=== PATIENT | female | born 1990 | race Caucasian/White ===

== ENCOUNTER → 2019-03-19 10:16 | Outpatient (CLI) | payer SELFPAY ==
[2019-03-19 11:00] LABS: Appearance Urine UA CLOUDY; Bilirubin Urine UA NEGATIVE (NEGATIVE); Color Urine UA YELLOW; Glucose Urine UA NEGATIVE (Negative); Ketones Urine UA NEGATIVE (NEGATIVE); Leukocyte Esterase Urine UA 2+ (NEGATIVE); Nitrite Urine UA NEGATIVE (Negative); Occult Blood Urine UA NEGATIVE (Negative); Protein Urine UA NEGATIVE (Negative); Specific Gravity Urine UA 1.025 (1.000-1.035); Urobilinogen Urine UA 0.2 E.U./dL (0.2); pH Urine UA 6.5 (4.5-8.0)
[2019-03-19 11:16] LABS: Add Manual Diff / Slide Review NO; Basophils Absolute Auto 0 /uL (0-100); Basophils Percent Auto 0.2 % (0-2); Eosinophils Absolute Auto 0 /uL (0-450); Eosinophils Percent Auto 0.4 % (2-4); Hematocrit 41.5 % (36-46); Hemoglobin 14.7 g/dL (12.0-16.0); Hemoglobin A1C% w Est Avg Glu 5.2 % (4.0-6.0); Lymphocytes Absolute Auto 1800 /uL (1100-4500); Lymphocytes Percent Auto 20.3 % (25-40); Mean Corpuscular HGB Conc 35.4 % (30-36); Mean Corpuscular Hemoglobin 30.6 PG (26-34); Mean Corpuscular Volume 86.5 fL (80-100); Monocytes Absolute Auto 600 /uL (0-900); Monocytes Percent Auto 6.7 % (3-14); Neutrophils Absolute Auto 6200 /uL (1500-7000); Neutrophils Percent Auto 72.4 % (50-75); Platelet Count 196 X10^3/uL (150-400); Red Blood Cell Count 4.79 X10^6/uL (4.0-5.2); White Blood Cell Count 8.6 X10^3/uL (4.5-11.0)
[2019-03-19 11:39] LABS: Bacteria Urine Many (>30); RBC Urine 1-5/HPF (0-5/HPF); Squamous Epithelial Cell Urine 10-30 /HPF (0-5/HPF); WBC Urine 5-10/HPF (0-5/HPF)
[2019-03-19 11:40] LABS: Amorphous Sediment Urine 1+; Culture Indicated Urine Cult Not Indicated
[2019-03-19 12:16] LABS: Glucose 105 mg/dL (70-100)
[2019-03-19 18:42] LABS: Hepatitis B Surface Antigen NEGATIVE s/c (NEGATIVE)
[2019-03-19 18:59] LABS: HIV 1 & 2 Ab/Ag 4th Gen Combo NEGATIVE (NEGATIVE); Hep C Virus Ab w/Reflex Quant NEGATIVE s/c (NEGATIVE)
[2019-03-21 13:39] LABS: RPR Screen Nonreactive (Nonreactive)
== END ==
DX: Z34.81 Encounter for supervision of other normal pregnancy, first trimester (principal)
CPT/HCPCS: 36415; 80055; 81003; 81015; 82947; 83036; 86787; 86803; 86850; 86900; 86901; 87086; 87389

== ENCOUNTER → 2019-04-17 08:31 | Outpatient (CLI) | payer SELFPAY ==
[2019-04-21 09:09] LABS: Sequential Screen 1st Trimeste FINAL RESULT PENDING
== END ==
DX: Z36.0 Encounter for antenatal screening for chromosomal anomalies (principal); Z3A.13 13 weeks gestation of pregnancy
CPT/HCPCS: 36415; 84163; 84702

== ENCOUNTER → 2019-05-15 09:42 | Outpatient (CLI) | payer SELFPAY ==
[2019-05-19 09:38] LABS: Sequential Screen 2nd Trimeste SCREEN NEGATIVE
== END ==
LOC: LAB 09:50
DX: Z13.79 Encounter for other screening for genetic and chromosomal anomalies (principal); Z34.82 Encounter for supervision of other normal pregnancy, second trimester; Z3A.17 17 weeks gestation of pregnancy
CPT/HCPCS: 36415; 82105; 82677; 84163; 84702; 86336

== ENCOUNTER → 2019-09-03 10:43 | Outpatient (CLI) | payer OTHER, SELFPAY ==
[2019-09-03 13:31] LABS: Hematocrit 38.3 % (36-46); Hemoglobin 13.7 g/dL (12.0-16.0)
[2019-09-03 13:57] LABS: GTT (PREG) 1 Hour PP 50gm Dose 170 mg/dL (76-139)
== END ==
PROVIDERS: Obstetrics & Gynecology
DX: Z34.82 Encounter for supervision of other normal pregnancy, second trimester (principal)
CPT/HCPCS: 36415; 82950; 85014; 85018

== ENCOUNTER → 2019-09-17 08:15 | Outpatient (CLI) | payer OTHER, SELFPAY ==
[2019-09-18 14:44] LABS: Strep Grp B PCR NEG for Grp B Strep
== END ==
LOC: LAB 08:16
PROVIDERS: PCP Family Medicine; Visit Provider Specialist
DX: Z34.83 Encounter for supervision of other normal pregnancy, third trimester (principal); Z3A.35 35 weeks gestation of pregnancy
CPT/HCPCS: 87653

== ENCOUNTER 2019-10-12 13:50 | Inpatient (IN) | payer OTHER, SELFPAY ==
--- NOTE | 2019-10-12 14:17 | PM.OBHP.1 ---
OB HPI Date/Time Date of admission: 10/12/19 Date Patient Seen: 10/12/19 Time Patient Seen: 14:18 History of Present Condition Chief complaint: OBS : 3 Para: 1 Estimated Date of Delivery: 10/20/19 Estimated Gestational Age (weeks): 39 Narrative: Tereza Pang is a 29 year old female admitted in early labor History of Present care: good care, initiated at week # (9), number of visits (12) and pounds weight gain (29) Dating criteria: LMP confirmed by 1st trimester US Ultrasounds: normal mid trimester US Obstetrical complications: none Medical complications: none Preadmission Labs Blood type: B (+) positive -: Antibody screen: negative, GBS status: negative, HBsAG: negative, HIV: negative and RPR/VDLR: negative -: Chlamydia screen: not detected and Gonorrhea screen: not detected -: Rubella: immune and Varicella: immune HCAB: negative PAP: Normal Quad screen: Normal 1 hr GTT: 170 Narrative: 3 hour glucose tolerance test not performed. Patient has been monitoring blood sugars and they are just a few points above ideal. Evaluation Evaluation Baseline heart rate: 130 Variability: Moderate (11-25) monitor accelerations: Present monitor decelerations: Absent Contraction Frequency (minutes): 3 Uterine Contraction Intensity: Mild Category of Tracing: I Cervical dilation (cm): 4 Cervical effacement (%): 80 station: 0 PFSH Medical History (Updated 10/10/19 @ 11:14 by Jude Daniels MD) Chlamydia (Chronic ~2012) Human papilloma virus (Chronic ~2016) Kidney stones (Inactive ~2008) Multigravida in third trimester (Acute) Surgical History (Updated 04/15/19 @ 21:40 by Day Aldridge) [place] teeth removed (Resolved) Family History (Updated 04/15/19 @ 21:42 by Day Aldridge) Father History of heart attack Mother Cervical cancer Diabetes mellitus Grandfather Stroke Meds Home Medications and Allergies Home Medications Medication Instructions Recorded Confirmed Type prenat.vits,blair,ntd-crzt-koert 1 tab PO DAILY 03/19/19 08/28/19 History blood-glucose meter #1 each 09/05/19 Rx lancets-blood glucose strips 30 #200 each 09/05/19 Rx gauge and blood glucose strips combo pack Allergies Allergy/AdvReac Type Severity Reaction Status Date / Time amoxicillin [From Augmentin] AdvReac Delayed Verified 08/28/19 09:17 Hives/Rash clavulanic acid AdvReac Delayed Verified 08/28/19 09:17 [From Augmentin] Hives/Rash Review of Systems Review of Systems Narrative: Patient denies any headaches, scotomata, epigastric pain. Good movement. No rupture membranes. No fevers. ROS: Yes All systems reviewed with the patient and are negative except as otherwise documented Exam Vital Signs (past 8 hours): Blood pressure initially 152/96 repeat blood pressure 145/102 Narrative Exam Narrative: HEENT exam within normal limits. Lungs are clear to auscultation and percussion. Heart is regular rate and rhythm no S3-S4 or murmurs. Abdomen is soft, nontender. Fetus is vertex. Extremities without edema and nontender. Normal DTRs. Assessment and Plan Assessment and Plan Assessment and Plan narrative: 39 week gestation with diet-controlled gestational diabetes, hypertension in 3rd trimester, in early labor. Will check PIH labs and IV labetalol for hypertension. Monitor glucose. Anticipate vaginal delivery.
[2019-10-12 16:10] LABS: Basophils Absolute Auto 100 /uL (0-100); Basophils Percent Auto 0.5 % (0-2); Eosinophils Absolute Auto 100 /uL (0-450); Eosinophils Percent Auto 0.5 % (2-4); Hematocrit 40.6 % (36-46); Hemoglobin 14.2 g/dL (12.0-16.0); Lymphocytes Absolute Auto 1800 /uL (1100-4500); Lymphocytes Percent Auto 17.5 % (25-40); Mean Corpuscular Hemoglobin 31.4 PG (26-34); Mean Corpuscular Volume 89.7 fL (80-100); Monocytes Absolute Auto 600 /uL (0-900); Monocytes Percent Auto 6.3 % (3-14); Neutrophils Absolute Auto 7800 /uL (1500-7000); Neutrophils Percent Auto 75.2 % (50-75); Platelet Count 177 X10^3/uL (150-400); Red Blood Cell Count 4.53 X10^6/uL (4.0-5.2); Red Cell Distribution Width 13.2 % (11.6-14.8); White Blood Cell Count 10.3 X10^3/uL (4.5-11.0)
[2019-10-12 16:11] LABS: Add Manual Diff / Slide Review SLIDE REVIEW
[2019-10-12 16:27] LABS: Alanine Aminotransferase 17 IU/L (<35); Albumin 3.3 g/dL (3.5-5.0); Albumin Globulin Ratio 1.1 (1.0-2.8); Alkaline Phosphatase 193 U/L (38-126); Aspartate Aminotransferase 24 IU/L (14-36); Bilirubin Total 0.5 mg/dL (0.2-1.3); Blood Urea Nitrogen 10 mg/dL (7-17); Calcium 9.1 mg/dL (8.4-10.2); Carbon Dioxide 19 mmol/L (22-32); Chloride 107 mmol/L (98-107); Estimated Glomerular Filt Rate > 60.0 mL/min (>60); Globulin 2.9 g/dL (1.7-4.1); Glucose 100 mg/dL (70-100); HEMOLYSIS < 15 (0-50); Potassium 4.1 mmol/L (3.4-5.1); Sodium 135 mmol/L (137-145); Total Protein 6.2 g/dL (6.3-8.2)
[2019-10-12 16:52] VITALS: BP 135/88
[2019-10-12 17:00] LABS: RBC Morphology Normal Morphology
--- NOTE | 2019-10-12 22:41 | P.PCNOB_ITS ---
Labor & Delivery Delivery date: 10/12/19 Intrapartal events: None Delivery augmentation: rupture of membranes Delivery monitor: external FHT and external uterine Route of delivery: L&D Laceration Description: None Estimated blood loss (mL): 350 Anesthesia type: None Narrative: Patient arrived on Labor and delivery in early labor with increased blood pressures. PIH labs were normal. She was AROM for clear fluid. heart tones category 1 to category 2 throughout labor. She had a spontaneous vaginal delivery over an intact perineum. The viable female infant was placed on maternal abdomen. After the cord stopped pulsating the cord was clamped, cut, and cord bloods obtained. The placenta delivered spontaneously, intact, with 3 vessels. There were no cervical, vaginal, or perineal tears. Both mother doing well. Baby 1: Infant gender: Female Presentation: vertex position: Right Occiput Anterior Placenta delivery description: Spontaneous cord vessel description: 3 Vessels score (1 min): 8 score (5 min): 9 Plan for aftercare: Routine care
[2019-10-12] MEDS: OXYTOCIN 10 UNIT/ML VIAL 20 UNIT (22:45)
[2019-10-12] MEDS: IBUPROFEN 600 MG TABLET PO (23:30)
--- NOTE | 2019-10-13 | PATH_ITS ---
[facility] Accession Number: [id number] . 01 Material submitted: . placenta - RETAINED PLACENTA . 01 Clinical history: . OBS . 02 Diagnosis: Retained Placenta: Products of conception identified. V 10/17/2019 0806 Local . 02 Electronically signed: . Michaela Paniagua MD, Pathologist NPI- [id number] . 01 Gross description: . Received in formalin, labeled retained placenta, is a piece of red-brown, spongy hemorrhagic tissue (82 g, 8.8 x 5.7 x 3.4 cm). No nodules, masses, or lesions are identified. Paraoptometric tissue submitted in cassettes A1-A4. ([id number]) /[facility] 10/15/2019 1210 Local . 02 Pathologist provided ICD-10: O02.1 . 02 CPT . 881669 Performed at: 01 [facility] [address] [facility], [place], [place] [id number] MD Jace Hernández MD Phone: [phone] Performed at: [address] [facility] [address] [place], [place] [id number] MD Jaqueline Heck MD Phone: [phone]
[2019-10-13] MEDS: OXYTOCIN PREMIX 30 UNIT/500 ML PLAST..BAG IV (00:56)
[2019-10-13] MEDS: CARBOPROST 250 MCG/ML AMPUL IM (03:35)
[2019-10-13] MEDS: ACETAMINOPHEN 325 MG TABLET 650 MG PO (03:59)
--- NOTE | 2019-10-13 05:01 | PM.PREOP ---
Pre-operative Note Interval Note History & Physical reviewed/Exam performed by Physician: Yes Changes to H&P: Yes H&P completed within 30 days and has changed as indicated here:: hemorrhage
--- NOTE | 2019-10-13 05:02 | PM.OBPN.1 ---
Subjective - OB Subjective Patient comments: other (Continued vaginal bleeding) baby status: doing well feeding status: exclusively breast feeding Date Patient Seen: 10/13/19 Time Patient Seen: 05:02 Exam Vital Signs (past 8 hours): Blood pressure 115/72, pulse 105, temperature 98.5? Narrative Exam Narrative: Abdomen is soft, nontender. Uterus is firm at U +1 and tender. Moderate lochia. Extremities without edema and nontender. Patient has had close to 1000cc blood loss since delivery despite massage, additional IV Pitocin, Hemabate. Methergine was not given due to patient's blood pressure issues prior to delivery. hemorrhage of unclear etiology. Will do an exam under anesthesia and endometrial curettage. Consent form was reviewed with the patient. Risk of infection, perforation with damage to internal structures such as bowel, bladder, ureters, scar tissue, continued bleeding discussed with the patient. Consent form was signed and questions answered. Objective Labs Result Diagrams: 10/12/19 15:50 10/12/19 15:50 Labs: Laboratory Results - last 24 hr 10/12/19 10/12/19 10/12/19 15:50 15:50 15:50 WBC 10.3 RBC 4.53 Hgb 14.2 Hct 40.6 MCV 89.7 MCH 31.4 MCHC 35.0 RDW 13.2 Plt Count 177 Neut % (Auto) 75.2 H Lymph % (Auto) 17.5 L Maury % (Auto) 6.3 Eos % (Auto) 0.5 L Baso % (Auto) 0.5 Neut # (Auto) 7800 H Lymph # (Auto) 1800 Maury # (Auto) 600 Eos # (Auto) 100 Baso # (Auto) 100 RBC Morphology Normal morphology Sodium 135 L Potassium 4.1 Chloride 107 Carbon Dioxide 19 L BUN 10 Creatinine 0.40 L Estimated GFR > 60.0 BUN/Creatinine Ratio 25.0 H Glucose 100 Calcium 9.1 Total Bilirubin 0.5 AST 24 ALT 17 Alkaline Phosphatase 193 H Total Protein 6.2 L Albumin 3.3 L Globulin 2.9 Albumin/Globulin Ratio 1.1 Blood Type B Positive Antibody Screen Negative Assessment & Plan Assessment and Plan (1) Vaginal delivery: Status: Acute Current Visit: Yes (2) hemorrhage: Status: Acute Current Visit: Yes Plan day: 1 plan OB: other (Patient with hemorrhage of unclear etiology. ) Time Spent With Patient Time: Total time spent is greater than 50% in coordination of care (as documented) at patient's floor/unit and/or counseling patient: Time with patient: less than 15 minutes
[2019-10-13] MEDS: LACTATED RINGERS 1,000 ML 42 ML IV (05:45)
[2019-10-13] MEDS: CLINDAMYCIN 900 MG/50 ML PIGGYBACK 50 MG IV (05:50)
--- NOTE | 2019-10-13 05:59 | SUR.OPER ---
Lithotomy on padded OR bed, head on pillow, arms secured on padded arm boards at <90 degrees abduction. Legs secured in padded yellow fins stirrups.
[2019-10-13 06:07] LABS: Add Manual Diff / Slide Review NO; Basophils Absolute Auto 0 /uL (0-100); Basophils Percent Auto 0.1 % (0-2); Eosinophils Absolute Auto 0 /uL (0-450); Hematocrit 25.1 % (36-46); Hemoglobin 8.8 g/dL (12.0-16.0); Lymphocytes Absolute Auto 900 /uL (1100-4500); Lymphocytes Percent Auto 6.4 % (25-40); Mean Corpuscular HGB Conc 35.1 % (30-36); Mean Corpuscular Hemoglobin 31.4 PG (26-34); Mean Corpuscular Volume 89.4 fL (80-100); Monocytes Absolute Auto 700 /uL (0-900); Monocytes Percent Auto 4.9 % (3-14); Neutrophils Absolute Auto 13100 /uL (1500-7000); Neutrophils Percent Auto 88.6 % (50-75); Platelet Count 160 X10^3/uL (150-400); Red Blood Cell Count 2.81 X10^6/uL (4.0-5.2); Red Cell Distribution Width 13.2 % (11.6-14.8); White Blood Cell Count 14.7 X10^3/uL (4.5-11.0)
[2019-10-13 06:14] VITALS: BP 130/76; PULSE 120; RESP 11; TEMP 36.4; O2SAT 99
[2019-10-13 06:17] VITALS: BP 125/87; PULSE 105; RESP 12; O2SAT 99
--- NOTE | 2019-10-13 06:21 | PM.OP.1 ---
Operative Date/Time/Diagnoses Date of procedure: 10/13/19 Time of procedure: 06:21 Pre-op diagnosis: hemorrhage Post-op diagnosis: same Procedure & Clinicians Procedure: Exam under anesthesia with uterine curettage Same procedure as scheduled: Yes Indications: hemorrhage Surgeon: Janina Villatoro Click Yes if Unassisted: Yes Anesthesia Type: General Operative Notes Findings: Retained placental fragment Closure Type: not applicable Specimen(s): other (Retained placenta fragment) Estimated Blood Loss (mL): 50 Blood products transfused: none Procedure in detail: Patient was brought to the operating room where she underwent general anesthesia. She was prepped and draped in the usual sterile fashion. Her bladder was drained with an in-and out catheter. A check system was reviewed with the staff in the room prior to beginning the case. 900 mg of clindamycin in prior to beginning of the case. The vagina was cleared of blood clots. A ring forcep was placed on the anterior lip of the cervix. There were no cervical vaginal or perineal tears. Curettage was performed. A fairly large segment of placenta was removed. 800 micro g of Cytotec were placed in the rectum. The uterus contracted well and bleeding was minimal. She went to the recovery room in good condition. Complications: none Post-operative Condition: stable Disposition: other ( Center) Plan for aftercare: Monitor for continued bleeding. Routine care otherwise.
[2019-10-13 06:22] VITALS: BP 125/83; PULSE 104; RESP 14; O2SAT 100
--- NOTE | 2019-10-13 06:36 | SUR.PHASEI ---
Report to [facility]. Pt transported via bed to OB, VS stable, fundus noted to be 2 below umbilicus, no bleeding noted during recovery phase. Pt in stable condition upon transfer and handoff.
[2019-10-13] MEDS: LACTATED RINGERS 1,000 ML 100 ML IV (07:03)
[2019-10-13] MEDS: DOCUSATE 100 MG CAPSULE PO (08:06)
[2019-10-13] MEDS: IBUPROFEN 600 MG TABLET PO (18:00)
[2019-10-14] MEDS: IBUPROFEN 600 MG TABLET PO (05:23)
[2019-10-14] MEDS: DOCUSATE 100 MG CAPSULE PO (09:03)
--- NOTE | 2019-10-14 09:29 | PM.OBDS.1 ---
Discharge Providers Provider Date of admission: 10/12/19 13:50 Discharge Date: 10/14/19 Primary care physician: Eliceo Marcus DO Consults: 10/13/19 22:39 Consult to Home School Teacher Routine Comment: Discharge provider: Janina Villatoro MD Summary Hospital Course Date Patient Seen: 10/14/19 Time Patient Seen: 08:10 Procedures: Spontaneous vaginal delivery, uterine curettage for retained placenta fragment Hospital Course: Patient arrived on Labor and delivery in active labor. She had elevated blood pressures initially then improved. Blood sugars were in the normal range. She had a spontaneous vaginal delivery. She had delayed hemorrhage from retained placenta fragments that required uterine curettage to remove. After the curettage the patient did well. She was ambulatory and urinating well. Pain was minimal. No fevers. Patient is without difficulty. Peripartum Data Delivery Method: Natural Vaginal Laceration description: None Procedures: Spontaneous vaginal delivery. Uterine curettage. complications: retained placenta (Fragment) [place] 1: Gender: Female Disposition of : home Discharge Diagnosis (1) Vaginal delivery: Status: Acute (2) hemorrhage: Status: Acute (3) Acute blood loss anemia: Status: Acute (4) Gestational diabetes: Status: Acute (5) Retained placenta parts or membranes: Status: Acute (6) Hypertension affecting in third trimester: Status: Acute Status at Discharge Cognitive/behavioral status at discharge: oriented Functional status at discharge: independent ambulation Overall status at discharge: patient is progressing back to baseline Time Spent with Patient Time attestation: Total time spent providing and/or coordinating discharge services: Time spent: Less than 30 minutes Objective Labs Result Diagrams: 10/13/19 05:50 10/12/19 15:50 Exam Vital Signs (past 8 hours): Blood pressure 134/81, pulse 104, temperature 98.2? Oxygen Delivery Method Room Air Narrative Exam Narrative: Abdomen is soft, nontender. Uterus is firm, U -1, nontender. Mild lochia. Extremities without edema and nontender. Patient's blood type is B positive, she is rubella immune, she received Tdap in the 3rd trimester. Discharge Plan Discharge Plan Patient Disposition: Home Discharge comment: Patient is to take iron at a different time than her vitamins. She is to use a stool softener wall taking the iron to prevent constipation. She does not need to continue glucose monitoring Discharge orders & Medications Prescriptions: Continued prenat.vits,blair,sgl-iojp-pevsn tablet 1 tab PO DAILY RF: 0 Discontinued (DME) blood-glucose meter [Blood Glucose Monitoring] Kit See Rx Instructions .ROUTE .MEDSUPPLY RF: 0 (DME) Fora [id number] strp-lnct 30 gauge combo pack See Rx Instructions .ROUTE .MEDSUPPLY RF: 0 Follow up/Referrals: Janina Villatoro MD [Physician] - 1 Month ( exam) Eliceo Marcus DO [Primary Care Provider] - Diet/Activity/Treatments Diet: Regular Activity: Nothing in vagina for 4 weeks Skin/Wound/Dressing Care Report to your healthcare provider any signs of infection, such as:: chills, fever and increased pain Discharge Data Primary Care Provider: Eliceo Marcus
[2019-10-14 11:43] VITALS: BP 125/83; PULSE 104; RESP 14; TEMP 36.4
== END 2019-10-14 11:40 | disposition home or self-care (01) | DRG 806 ==
PROVIDERS: Admitting Provider Specialist; PCP Family Medicine; Referring Provider Specialist; Visit Provider Specialist
PROC: 10D17Z9 Manual Extraction of Products of Conception, Retained, Via Natural or Artificial Opening (ICD-10-PCS; CPT 58120; principal; 2019-10-13 05:30)
DX: O24.420 Gestational diabetes mellitus in childbirth, diet controlled (principal); O72.2 Delayed and secondary postpartum hemorrhage; Z37.0 Single live birth; D62 Acute posthemorrhagic anemia; Z3A.39 39 weeks gestation of pregnancy
CPT/HCPCS: 59050; 59160; 59410; 80053; 85025; 86850; 86900; 86901; G0379; J0330; J1885; J2405; J2590; J2704; J3010

== ENCOUNTER → 2020-02-16 17:28 | Outpatient (CLI) | payer OTHER, SELFPAY ==
--- NOTE | 2020-02-16 17:32 | DI.MRI.S_ITS ---
PROCEDURE: MR KNEE LT WO CON INDICATIONS: rule out miniscus tear TECHNIQUE: Noncontrast sagittal PD fast spin echo and T2 fast spin echo with fat saturation, sagittal 3-D FLASH with fat saturation; coronal T1 spin echo and PD fast spin echo with fat saturation, and axial PD fast spin echo with fat saturation through the knee. COMPARISON: None. FINDINGS: Image quality: Excellent. Menisci: Medial meniscus intact. Lateral meniscus intact. Cruciate ligaments: Anterior cruciate ligament appears intact. Posterior cruciate ligament appears intact. Medial structures: The medial collateral ligament appears intact. Semimembranosus tendon appears intact. Visualized portions of the pes anserinus tendons appear normal. No abnormal bursal fluid. Lateral structures: The lateral collateral ligament intact. Biceps femoris tendon appears intact. Popliteus tendon grossly unremarkable. Iliotibial band appears intact. Anterior structures: Quadriceps tendon intact. Mild thickening and edematous signal changes of the medial patellofemoral ligament at both attachments, without rupture. Lateral patellofemoral ligament appears intact. Patellar tendon appears intact. Hoffa's fat pad unremarkable. Bones and cartilage: Marked marrow edema involving the medial femoral condyle medial tibial plateau. No discrete fracture line identified. Within the medial compartment, no definite focal cartilage defect Within the lateral compartment, no focal cartilage defect Within the patellofemoral compartment, mild surface fraying and intra-substance signal changes involving the colon overlying the medial patellar facet. Joint space: No joint effusion. No Nuno's cyst. No specific evidence of intra-articular loose body. IMPRESSION: Acute/subacute marrow contusion involving the medial femoral condyle and medial tibial plateau. Acute/subacute sprain of the medial patellofemoral and patellotibial ligament No meniscal tear identified Dictated by: Saturnino Pollard M.D. on 02/17/2020 at 9:22 Approved by: Saturnino Pollard M.D. on 02/17/2020 at 9:33
== END ==
PROVIDERS: PCP Family Medicine; Referring Provider Nurse Practitioner; Visit Provider Nurse Practitioner
DX: M25.562 Pain in left knee (principal); S76.112A Strain of left quadriceps muscle, fascia and tendon, initial encounter
CPT/HCPCS: 73721

== ENCOUNTER → 2020-06-10 09:38 | Outpatient (CLI) | payer OTHER, SELFPAY ==
[2020-06-11 13:06] LABS: COVID19 Sendout Not Detected (Not Detect)
== END ==
PROVIDERS: PCP Family Medicine; Visit Provider Physician Assistant
DX: Z11.59 Encounter for screening for other viral diseases (principal)
CPT/HCPCS: 87635

== ENCOUNTER 2020-08-27 09:56 | Emergency (ER) | payer OTHER, SELFPAY ==
[2020-08-27 10:16] VITALS: BP 136/86; PULSE 95; RESP 16; TEMP 36.6; O2SAT 99; BMI 24.4
--- NOTE | 2020-08-27 10:36 | ED_ITS ---
HPI - SOB/Dyspnea General Chief Complaint: Shortness of Breath/Dyspnea Stated Complaint: COVID SYMPTOMS Time Seen by Provider: 08/27/20 09:58 Source: patient Mode of arrival: Ambulatory Limitations: no limitations History of Present Illness HPI Narrative: 30-year-old female nonsmoker with noncontributory medical history presents with her and concern for COVID. Since yesterday she has had nasal congestion, headache, dry cough and body aches. She has had no sore throat, change in smell or fever. She has had no nausea, vomiting or diarrhea. She denies any exposure to persons known to have COVID. She initially contacted the respiratory clinic but was redirected here as they are closed MD Complaint: cough Onset (ago): hour(s) Severity: moderate Consistency/Duration: constant Relieving factors: nothing Exacerbating factors: nothing Treatment prior to arrival: none Related Data Home oxygen amount: none Previous Rx's Medication Instructions Recorded terbinafine HCl 1 % topical cream 1 applictn TOP DAILY #30 gram 03/05/20 terbinafine HCl 250 mg tablet 250 mg PO .COMPLEX #45 tab 03/05/20 hydroxyzine HCl 10 mg tablet 10 mg PO TID PRN #30 tab 05/20/20 escitalopram oxalate 10 mg tablet 20 mg PO DAILY #60 tab 08/11/20 Allergies Allergy/AdvReac Type Severity Reaction Status Date / Time amoxicillin [From Augmentin] AdvReac Delayed Verified 08/27/20 10:16 Hives/Rash clavulanic acid AdvReac Delayed Verified 08/27/20 10:16 [From Augmentin] Hives/Rash Review of Systems Constitutional Constitutional: Reports body ache(s), Denies chills, Denies fatigue, Denies fever(s), Denies frequent falls, Reports headache(s), Denies lethargy and Denies weakness Eyes Eyes: Denies change in vision, Denies eye discharge, Denies irritation and Denies loss of vision ENT Ears, Nose, Mouth, and Throat: Denies change in voice, Denies dizziness, Reports headache(s), Denies neck pain, Denies sore throat and Denies throat swelling Cardiovascular Cardiovascular: Denies chest pain, Denies irregular heart rhythm, Denies lightheadedness, Denies palpitations, Denies dyspnea, Denies dyspnea on exertion and Denies orthopnea Respiratory Respiratory: Reports cough, Denies dyspnea, Denies dyspnea on exertion and Denies wheezing Gastrointestinal Gastrointestinal: Denies abdominal pain, Denies change in bowel habits, Denies diarrhea, Denies nausea and Denies vomiting Musculoskeletal Musculoskeletal: Denies neck pain and Denies numbness Integumentary/Breasts Skin/Breast: Denies pruritus, Denies erythema, Denies rash and Denies wounds Neurologic Neurologic: Denies behavioral changes, Denies confusion, Denies dizziness, Denies frequent falls, Reports headache(s), Denies loss of vision, Denies numbness and Denies weakness Psychiatric Psychiatric: Denies anxiety, Denies behavioral changes, Denies confusion, Denies depression, Denies homicidal ideation and Denies suicidal ideation Endocrine Endocrine: Denies fatigue, Denies flushing and Denies palpitations Hematologic/Lymphatic Hematologic/Lymphatic: Denies easy bruising Allergic/Immunologic Allergic/Immunologic: Denies urticaria, Denies throat swelling and Denies wheezing Patient History Medical History (Updated 08/27/20 @ 10:12 by Jet Narayan DO) Anxiety and depression Chlamydia (~2012) Human papilloma virus (~2016) Kidney stones (~2008) Left knee pain Onychomycosis Sensation of feeling cold Surgical History (Updated 04/15/19 @ 21:40 by Day Aldridge) [place] teeth removed Family History (Updated 04/15/19 @ 21:42 by Day Aldridge) Father History of heart attack Mother Cervical cancer Diabetes mellitus Grandfather Stroke Social History Smoking Status: Never smoker Smoking Status: Never smoker alcohol intake frequency: 0-2 drinks per day Substance Use Type: marijuana Exam Narrative Exam Narrative: GENERAL: [30] year old patient appears stated age. Well- nourished, well-developed patient, in mild distress. HEAD: Atraumatic. Normocephalic. EYES: Pupils equal round and reactive. Extraocular motions intact. No scleral icterus. No injection or drainage. ENT: Nose without bleeding, purulent drainage. Throat without erythema, tonsillar hypertrophy or exudate. Airway patent. NECK: Trachea midline. Non tender CARDIOVASCULAR: Regular rate and rhythm without murmurs, gallops, or rubs. RESPIRATORY: Clear to auscultation. Breath sounds equal bilaterally. No wheezes, rales, or rhonchi. GASTROINTESTINAL: Abdomen soft, non-tender, nondistended. EXTREMITIES: No edema or joint tenderness. BACK: Nontender without deformity or crepitance. No flank tenderness. NEURO: AOx3. SKIN: No rash or erythema of visible areas Initial Vital Signs Initial Vital Signs: Vital Signs Temperature 97.9 F 08/27/20 10:16 Pulse Rate 95 H 08/27/20 10:16 Respiratory Rate 16 08/27/20 10:16 Blood Pressure 136/86 08/27/20 10:16 Pulse Oximetry 99 08/27/20 10:16 Course Orders Ordered: ED Orders 08/27/20 10:11 COVID19 Stat Vital Signs Vital signs: Vital Signs - 8 hr 08/27/20 10:16 Temperature 97.9 F Pulse Rate 95 H Respiratory Rate 16 Blood Pressure 136/86 Pulse Oximetry 99 MDM - SOB/Dyspnea Lab Data Labs: Lab Results 08/27/20 Range/Units 10:11 SARS-CoV-2 (PCR) Negative (Negative) Discharge Plan Departure Patient Disposition: Home Clinical Impression: Upper respiratory virus Instructions: DI for COVID-19 (Suspected or Confirmed ) Activity Restrictions/Additional Instructions: *You have been diagnosed with [Upper Respiratory Symptoms worrisome COVID-19] *What to do: * per recommendations from the CDC and the [facility] Department of Health * stay home except to get medical care. Restrict activities outside your home, except for getting medical care. Do not go to work, school, or public areas. Avoid using public transportation, ride sharing, or taxis. * separate yourself from other people in your home. * call ahead before visiting your doctor * Wear a facemask * Cover your coughs and sneezes * Clean your hands often * Avoid sharing household items * Clean all high-touch services every day * Monitor your symptoms and seek prompt medical attention if your illness is worsening, particularly with difficulty in breathing. You may discontinue your isolation when: 1. You have been fever-free for at least 24 hours without the use of fever reducing medication, AND 2. Your symptoms are getting better 3. At least 10 days have passed since symptoms first appeared Individuals with laboratory confirmed COVID-19 who have not had any symptoms may discontinue home isolation when at least 10 days have passed since the date of their first COVID-19 diagnostic test and have had no subsequent illness I will call you with the results Prescriptions: No Action escitalopram oxalate 10 mg tablet 20 mg PO DAILY Qty: 60 RF: 0 terbinafine HCl 250 mg tablet 250 mg PO .COMPLEX Qty: 45 RF: 3 terbinafine HCl 1 % cream 1 applictn TOP DAILY Qty: 30 RF: 5 hydroxyzine HCl 10 mg tablet 10 mg PO TID PRN (Reason: anxiety) Qty: 30 RF: 1 Referrals: Eliceo Marcus DO [Primary Care Provider] -
[2020-08-27 10:38] LABS: COVID19 -Nasal RAPID Negative (Negative)
== END 2020-08-27 10:26 | disposition home or self-care (01) ==
PROVIDERS: Emergency Provider Emergency Medicine; PCP Family Medicine
DX: J06.9 Acute upper respiratory infection, unspecified (principal); Z20.822 Contact with and (suspected) exposure to COVID-19; R51.9 Headache, unspecified
CPT/HCPCS: 87635; 99281; 99282